=== PATIENT | male | born 1965 | race Caucasian/White ===

== ENCOUNTER 2019-02-19 04:47 | Emergency (ER) | payer SELFPAY ==
[~2019-02-19] VITALS: Ht 182.9 cm; Wt 95.3 kg
[2019-02-19 05:28] VITALS: BP 148/90
[2019-02-19] MEDS ORDERED: SODIUM CHLORIDE 0.9% 1,000 ML IV ONE ×2 (06:55)
[2019-02-19] MEDS ORDERED: TAMSULOSIN HYDROCHLORIDE 0.4 MG CAP PO ONE (07:00)
[2019-02-19] MEDS ORDERED: KETOROLAC TROMETH 30 MG/ML 1ML VIAL IV ONE (07:00)
[2019-02-19 07:16] LABS: Urine Bacteria NONE SEEN /hpf (None Seen); Urine Blood 1+ /uL (Negative); Urine Mucus FEW (None Seen); Urine WBC 3 /hpf (0 - 3)
== END 2019-02-19 08:32 | disposition home or self-care (01) ==
LOC: ER 04:47 → EDBD 04:47 → ER 08:25
DX: N20.0 Calculus of kidney (principal); N39.0 Urinary tract infection, site not specified; J45.909 Unspecified asthma, uncomplicated; I10 Essential (primary) hypertension; F17.210 Nicotine dependence, cigarettes, uncomplicated
CPT/HCPCS: 74176; 81001; 96374; 99284; J1885